=== PATIENT | male | born 2000 | race Caucasian/White ===

== ENCOUNTER 2022-11-23 14:17 | Outpatient (CLI) | payer OTHER ==
--- NOTE | 2022-11-23 16:06 | MRI Report ---
PROCEDURE: KNEE WO - LT INDICATIONS: LEFT KNEE PAIN TECHNIQUE: Noncontrast sagittal PD fast spin echo and T2 fast spin echo with fat saturation, sagittal 3-D gradie nt sequence with fat saturation; coronal T1 spin echo and PD fast spin echo with fat saturation, and axial PD fast spin echo with fat saturation through the knee. COMPARISON: None. FINDINGS: Image quality: Excellent. Menisci: The medial and lateral menisci demonstrate normal morphology and internal signal. The meni scal root ligaments appear intact. Cruciate ligaments: The anterior and posterior cruciate ligaments appear intact. Medial structures: The medial collateral ligament appears highly thickened. The posterior oblique l igament, semimembranosus tendon insertions, and oblique popliteal ligament, and meniscocapsular junct ion appear intact. Visualized portions of the pes anserinus tendons appear normal. No abnormal burs al fluid. Lateral structures: The lateral collateral ligament, long and short heads of the biceps femoris tend on appear intact. The popliteus tendon appears normal; the popliteofibular ligament appears intact. Iliotibial band appears normal. Anterior structures: There is moderate grade partial-thickness tear involving medial patellofemoral l igament at its patella insertion. The quadriceps and patellar tendons appear intact. Patellar align ment is normal. No femoral trochlear dysplasia or ventral trochlear prominence. No edema in the inf rapatellar fat pad. Bones and cartilage: Extensive marrow edema involving lateral periphery of lateral femoral condyle we ightbearing portion without definite fracture line. Similar marrow edema involving medial portion of patella is also noted with cortical disruption and a small displaced bony fragment along medial aspec t suggestive of acute avulsion injury in this area. No other area of abnormal marrow signal is seen. 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 The cartilage of the medial fem oral tibial compartment and the patellofemoral compartment appears normal in thickness. Joint space: There is small to moderate knee joint fluid. There is a tiny Anguiano's cyst. Normal appe aring synovial plicae are incidentally noted. IMPRESSION: 1. Finding is consistent with reduced lateral patellar dislocation with bony contusion involving late ral periphery of lateral femoral condyle and medial portion of patella. Superimposed avulsion injury involving medial aspect of patella is seen with associated moderate grade partial-thickness tear of t he medial patellofemoral ligament. 2. The cruciate ligaments are intact. 3. No evidence of focal meniscal tear. 4. Low-grade MCL sprain. 5. Small to moderate joint effusion, no gross loose bodies. Reviewed by: Rodolfo Evans MD on 11/23/2022 4:05 PM PDT Approved by: Rodolfo Evans MD on 11/23/2022 4:05 PM PDT Station ID: [id number]
== END 2022-11-23 14:18 | disposition home or self-care (01) ==
LOC: DI 14:17
DX: S76.112A Strain of left quadriceps muscle, fascia and tendon, initial encounter (principal); S83.412A Sprain of medial collateral ligament of left knee, initial encounter; M25.462 Effusion, left knee